=== PATIENT | female | born 1980 | race Caucasian/White ===

== ENCOUNTER 2017-07-12 13:12 | Emergency (ER) | payer BC ==
--- NOTE | 2017-07-12 14:24 | ED ---
General Adult HPI - General Source: patient, RN notes reviewed Mode of arrival: ambulatory Limitations: no limitations <Tori Benson - Last Filed: 07/12/17 14:13> <Chan Saba - Last Filed: 07/12/17 14:33> - General Chief complaint: Recheck/Abnormal Lab/Rx Stated complaint: facial weakness/numbness Time Seen by Provider: 07/12/17 13:43 - History of Present Illness Initial comments: This is a 37-year-old female who presents to the emergency department with chief complaint of ear pain and facial weakness/numbness. Patient states that on Wednesday she began to have right ear pain. On Wednesday she lost sense of taste. She presented to the urgent care and was prescribed Keflex, Flonase and cough medicine and was diagnosed with eustachian tube dysfunction and sinus infection. Patient presents to the emergency department today with facial weakness and numbness that started this morning. She states that she is unable to fully close her right eye and that her smile is lopsided. She continues to have right ear pain and loss of sense of taste. States that her right cheek feels numb. Denies fever, chills, chest pain, shortness of breath, abdominal pain, nausea or vomiting, constipation or diarrhea, dysuria or hematuria, headache, hearing or vision changes. (Tori Benson) - Related Data Home Medications Medication Instructions Recorded Confirmed Pnv,Calcium 72/Iron/Folic Acid 01/28/16 01/28/16 [ Plus Tablet] Previous Rx's Medication Instructions Recorded Carboxymethylcellulose Sodium 1 drop RIGHT EYE Q2HR #1 bottle 07/12/17 [Refresh Tears] predniSONE 20 mg PO BID #14 tab 07/12/17 valACYclovir HCL [Valtrex] 1,000 mg PO TID 7 Days 07/12/17 Allergies Allergy/AdvReac Type Severity Reaction Status Date / Time No Known Allergies Allergy Verified 07/12/17 13:21 Review of Systems ROS Other: All systems not noted in ROS Statement are negative. <Tori Benson - Last Filed: 07/12/17 14:13> ROS Other: All systems not noted in ROS Statement are negative. <Chan Saba - Last Filed: 07/12/17 14:33> ROS Statement: Those systems with pertinent positive or pertinent negative responses have been documented in the HPI. Past Medical History Past Medical History: No Reported History Additional Past Medical History / Comment(s): Anxiety and depression History of Any Multi-Drug Resistant Organisms: None Reported Past Surgical History: No Surgical Hx Reported Additional Past Surgical History / Comment(s): [place] teeth extraction. Past Anesthesia/Blood Transfusion Reactions: No Reported Reaction Past Psychological History: No Psychological Hx Reported Smoking Status: Never smoker Past Alcohol Use History: Occasional Past Drug Use History: None Reported - Past Family History Father Family Medical History: Hypertension <Tori Benson - Last Filed: 07/12/17 14:13> General Exam Limitations: no limitations <Tori Benson - Last Filed: 07/12/17 14:13> <Chan Saba - Last Filed: 07/12/17 14:33> - General Exam Comments Initial Comments: General: Awake and alert, well-developed; in no apparent distress. Mother is at bedside. HEENT: Head atraumatic, normocephalic. Pupils are equal, round and reactive to light. Extraocular movements intact. Right eyelid appears droopy and patient is unable to fully close her right eye. Oropharynx moist without erythema or exudate. Neck: Supple. Normal ROM. Cardiovascular: Regular rate and rhythm. No murmurs, rubs or gallops. Chest symmetrical. Respiratory: Lungs clear to auscultation bilaterally. No wheezes, rales or rhonchi. Normal respiratory effort with no use of accessory muscles. Musculoskeletal: Normal range of motion, no tenderness and strength 5/5 bilateral upper and lower extremities. Radial pulses 2+ equal and palpable bilaterally. Skin: [place], warm and dry without rashes or lesions. Neurological: Alert and oriented x3. Speech is fluent and answers are appropriate. Patient unable to fully close her right eye. There is drooping of the right side of the mouth with smiling. She is able to fully furrow her eyebrows. Sensation is altered, there is numbness with palpation of right cheek. Bilateral upper and lower extremities have strength 5/5. Psychiatric: Normal mood and affect. No overt signs of depression or anxiety noted. (Tori Benson) Vital Signs 07/12/17 13:17 Temperature 98.1 F Pulse Rate 90 Respiratory 20 Rate Blood Pressure 134/76 O2 Sat by Pulse 99 Oximetry Medical Decision Making <[place],Tori M - Last Filed: 07/12/17 14:13> <Chan Saba - Last Filed: 07/12/17 14:33> - Medical Decision Making This is a 37-year-old female presents to the emergency department chief complaint of facial numbness and weakness. This case was discussed with Dr. Saba who also evaluated the patient. Patient has right-sided facial weakness. She is unable to fully close her eye and she is unable to smile on the right side of her mouth. Strength of bilateral upper and lower extremities is 5/5. No focal neuro deficits. Patient is in no acute distress. 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 She will be discharged home with prescriptions for Valtrex, prednisone and eye lubrication drops. She'll also be referred to ENT for further evaluation upon her request. Strongly advised keeping the eye during sleep. Patient is in agreement with plan and voices understanding. All questions were answered. (Tori Benson) The patient was seen and examined. It is felt as though she does have a Chun's palsy. The case is also discussed with the PA and agree with the findings as documented. (Chan Saba) Disposition Time of Disposition: 14:24 <Tori Benson - Last Filed: 07/12/17 14:13> <Chan Saba - Last Filed: 07/12/17 14:33> Clinical Impression: Chun's palsy Disposition: HOME SELF-CARE Condition: Good Instructions: Chun Palsy (ED) Additional Instructions: Please follow-up with Dr. Hartley, ENT within 1-2 days. Please keep right eye taped shut during sleep. Please take medications as prescribed. Please follow up with primary care provider within 1-2 days. Return to emergency department if symptoms should worsen or any concerns arise. Prescriptions: Carboxymethylcellulose Sodium [Refresh Tears] 1 drop RIGHT EYE Q2HR #1 bottle predniSONE 20 mg PO BID #14 tab valACYclovir HCL [Valtrex] 1,000 mg PO TID 7 Days Referrals: Ana Rosa Gilmore MD [Primary Care Provider] - 1-2 days
[2017-07-12 14:36] VITALS: BP 118/72; PULSE 86; RESP 18; TEMP 98.6
== END 2017-07-12 14:36 | disposition home or self-care (01) ==
LOC: EC 13:12
DX: G51.0 Bell's palsy (principal); H92.01 Otalgia, right ear; Z79.899 Other long term (current) drug therapy
CPT/HCPCS: 99283

== ENCOUNTER → 2020-02-13 | Outpatient (CLI) | payer BC, OTHER ==
--- NOTE | 2020-02-13 08:14 | XR ---
EXAMINATION TYPE: XR abdomen 1V DATE OF EXAM: 02/13/2020 Comparison: None Clinical History: 40-year-old female N20.1 L ureteral stone Findings: 3 mm calcification projecting at the right mid abdomen. Bowel content largely obscures the left renal shadow. Nonobstructive bowel gas pattern. Mild to moderate stool in the right side of the abdomen. P unctate phlebolith in the right side of the pelvis. Impression: 3 mm nonobstructive right renal calculus. Bowel content largely obscures the left renal shadow.
== END | disposition home or self-care (01) ==
LOC: RADXRMAIN 07:41
PROVIDERS: ATTEND Urology
DX: N20.0 Calculus of kidney (principal)
CPT/HCPCS: 74018

== ENCOUNTER → 2020-02-14 | Outpatient (CLI) | payer OTHER ==
--- NOTE | 2020-02-14 17:35 | CT ---
EXAMINATION TYPE: CT abdomen pelvis wo con DATE OF EXAM: 02/14/2020 COMPARISON: None HISTORY: Left flank pain. CT DLP: 239.3 mGycm Automated exposure control for dose reduction was used. Multiple axial sections were obtained from the diaphragm to the floor the pelvis with no contrast. Lung bases are clear. There is no pleural effusion. Heart size is normal. There is no pericardial eff usion. Liver spleen pancreas gallbladder stomach appear normal. Bile ducts are not dilated. There is no adrenal mass. Kidneys have normal size. There is no hydronephrosis. Ureters are not dilat ed. There are bilateral renal calculi or 3 calculi in the right kidney that measure up to 5 mm. There are 3 calculi in the left kidney measuring up to 3 mm. There is no retroperitoneal adenopathy. Urete rs are not dilated. Appendix is posterior and appears normal. Bladder distends smoothly. There is no inguinal hernia. Uterus is retroverted. Lumbar vertebra have normal spacing and alignment. Posterior elements are intact. There is no compression fracture. Bony pelvis is intact. There is small amount of free fluid in the cul-de-sac. There is 2.3 cm cyst on the left ovary. There is no mesenteric edema. There is no ascites or free air. There is no bowel obstruction. IMPRESSION: Left ovarian cyst. Small amount of free fluid in the pelvis. Nonobstructing multiple bilateral renal calculi.
== END | disposition home or self-care (01) ==
LOC: RADCTMAIN 16:47
PROVIDERS: ATTEND Urology
DX: N83.202 Unspecified ovarian cyst, left side (principal); N20.0 Calculus of kidney
CPT/HCPCS: 74176